=== PATIENT | female | born 1995 | race Caucasian/White ===

== ENCOUNTER → 2016-12-19 | Outpatient (CLI) | payer BC ==
[~2016-12-19] MED LIST: BENADRYL25 MG PO; BIRTH CONTROL; FAMOTIDINE PO; FIORICET1 TAB PO; FLEXERIL10 MG PO; MECLIZINE HCL25 M1 PO; MEDROL4 MG/DOSE- PO; NO MEDICATIONS; ZOFRAN PO
== END | disposition home or self-care (01) ==
LOC: SLABONLY 08:14
DX: E27.2 Addisonian crisis (principal)
CPT/HCPCS: 36415; 82533